=== PATIENT | female | born 1990 | race African-American/Black ===

== ENCOUNTER 2021-06-11 18:58 | Emergency (ER) | payer SELFPAY ==
[2021-06-11] MEDS ORDERED: Cephalexin 250 MG CAP ONE (19:24)
[2021-06-11] MEDS ORDERED: predniSONE 20 MG TAB ONE (19:24)
== END 2021-06-11 19:40 | disposition home or self-care (01) ==
LOC: BURERS 18:58
DX: S50.862A Insect bite (nonvenomous) of left forearm, initial encounter (principal); W57.XXXA Bitten or stung by nonvenomous insect and other nonvenomous arthropods, initial encounter
CPT/HCPCS: 99283; J7512